=== PATIENT | female | born 1945 | race Caucasian/White ===

== ENCOUNTER 2017-05-11 19:02 | Emergency (ER) | payer MEDICARE ==
--- NOTE | 2017-05-11 20:18 | ED ---
Fall HPI - General Chief Complaint: Fall Stated Complaint: Fall Time Seen by Provider: 05/11/17 19:39 Source: patient, RN notes reviewed, old records reviewed Mode of arrival: wheelchair - History of Present Illness Initial Comments: 71-year-old female presents the ED chief complaint of right shoulder pain. Patient reports that she tripped and fell when she was going over her course in. She reports that her second foot fell or tripped over a board and she landed on her right shoulder. She denies any neck or head pain or any other injuries. She reports that she has no elbow pain or pain with the wrist or hand. He reports that when she fell she landed on her shoulder and felt a crunching denies any previous injuries. She is right-handed. Patient reports she's never seen an orthopedic that she is aware. Patient reports she noticed significant bruising or swelling. - Related Data Home Medications Medication Instructions Recorded Confirmed Calcium Carbonate/Vitamin D3 1 tab PO DAILY 05/11/17 05/11/17 [Calcium 600-Vit D3 200 Tablet] Fluticasone/Salmeterol [Advair 1 puff INHALATION RT-DAILY 05/11/17 05/11/17 500-50 Diskus] Glucosam/Sumeet-Msm1/C/Eitan/Bosw 1 tab PO DAILY 05/11/17 05/11/17 [Glucosamine-Chondroitin Tablet] Multivitamins, Thera [Multivitamin 1 tab PO DAILY 05/11/17 05/11/17 (formulary)] Previous Rx's Medication Instructions Recorded HYDROcodone/APAP 10-325MG [[place] 1 tab PO Q4HR PRN #15 tab 05/11/17 10-325] Allergies Allergy/AdvReac Type Severity Reaction Status Date / Time cefprozil [From Cefzil] Allergy Rash/Hives Verified 05/11/17 20:02 ciprofloxacin Allergy Rash/Hives Verified 05/11/17 20:02 Review of Systems ROS Statement: Those systems with pertinent positive or pertinent negative responses have been documented in the HPI. ROS Other: All systems not noted in ROS Statement are negative. Past Medical History Past Medical History: Asthma History of Any Multi-Drug Resistant Organisms: None Reported Past Surgical History: Tonsillectomy Past Psychological History: No Psychological Hx Reported Smoking Status: Never smoker Past Alcohol Use History: Occasional Past Drug Use History: None Reported General Exam - General Exam Comments Initial Comments: 71-year-old female. No acute distress. Limitations: no limitations General appearance: alert, in no apparent distress Head exam: Present: atraumatic, normocephalic, normal inspection Eye exam: Present: normal appearance, PERRL, EOMI. Absent: scleral icterus, conjunctival injection, periorbital swelling ENT exam: Present: normal exam, mucous membranes moist Neck exam: Present: normal inspection. Absent: tenderness, meningismus, lymphadenopathy Respiratory exam: Present: normal lung sounds bilaterally. Absent: respiratory distress, wheezes, rales, rhonchi, stridor Cardiovascular Exam: Present: regular rate, normal rhythm, normal heart sounds. Absent: systolic murmur, diastolic murmur, rubs, gallop, clicks GI/Abdominal exam: Present: soft, normal bowel sounds. Absent: distended, tenderness, guarding, rebound, rigid Extremities exam: Present: normal capillary refill, other (Right upper arm bruising and swelling. Patient has ecchymosis over the anterior part of the arm. Difficulty with any movement of the shoulder. She does have full range of motion of the elbow and wrist. Normal sensation distally. Less than 2 second capillary refill.). Absent: full ROM, tenderness, pedal edema, joint swelling, calf tenderness Back exam: Present: normal inspection Neurological exam: Present: alert, oriented X3, CN II-XII intact Psychiatric exam: Present: normal affect, normal mood Skin exam: Present: warm, dry, intact, normal color. Absent: rash Course Vital Signs 05/11/17 19:21 Temperature 98.7 F Pulse Rate 69 Respiratory 20 Rate Blood Pressure 139/65 O2 Sat by Pulse 97 Oximetry Medical Decision Making - Medical Decision Making 71-year-old female with chief complaint of right shoulder pain after falling after tripping over a fence. She heard a crunching noise over the right shoulder. She does have significant bruising and swelling noted over the anterior part of the upper arm. Patient reports that there is pain with moving. X-rays of the right shoulder obtained and have evidence of a intertrochanteric humerus fracture. She was placed in a sling. Patient will be discharged with orthopedic follow-up and pain medication. Patient advised to sleep with her head upright and propped on pillows. Patient agrees to treatment plan will comply. Return parameters were discussed. Disposition Clinical Impression: Comminuted right humeral fracture Disposition: HOME SELF-CARE Condition: Good Instructions: Arm Fracture in Adults (ED), Proximal Humerus Fracture (ED) Additional Instructions: Patient advised to sleep with pillows propping her arm up and sitting up. Patient to take pain medication as directed. Follow-up with orthopedic physician on Friday. Return to the emergency department if any alarming signs or symptoms occur. Patient needs to remain in sling at all times. Prescriptions: HYDROcodone/APAP 10-325MG [[place] 10-325] 1 tab PO Q4HR PRN #15 tab PRN Reason: Pain Referrals: Bianca Espinoza III, MD [Primary Care Provider] - 1-2 days Sylvain Waite MD [STAFF PHYSICIAN] - 1-2 days Time of Disposition: 20:29
--- NOTE | 2017-05-11 20:24 | XR ---
EXAMINATION TYPE: XR shoulder complete RT DATE OF EXAM: 05/11/2017 COMPARISON: NONE HISTORY: Shoulder pain TECHNIQUE: 3 views FINDINGS: There is nondisplaced comminuted fracture of the neck of the right humerus. There is no dis location. AC joint is intact. Scapula appears intact. IMPRESSION: Comminuted humeral neck fracture.
[2017-05-11] MEDS ORDERED: HYDROcodone/APAP 10-325MG 1 EACH TAB PO ONE (20:28)
[2017-05-11] MEDS ORDERED: ACET/COD 300 MG/30 MG STARTER PACK 6 TAB BTL PO STA (20:28)
[2017-05-11 20:45] VITALS: BP 104/63; PULSE 62; RESP 15; TEMP 97.9
== END 2017-05-11 20:41 | disposition home or self-care (01) ==
LOC: EC 19:02
DX: S42.294A Other nondisplaced fracture of upper end of right humerus, initial encounter for closed fracture (principal); J45.909 Unspecified asthma, uncomplicated; Z79.51 Long term (current) use of inhaled steroids; Z79.899 Other long term (current) drug therapy; Z88.1 Allergy status to other antibiotic agents; W01.0XXA Fall on same level from slipping, tripping and stumbling without subsequent striking against object, initial encounter
CPT/HCPCS: 99284

== ENCOUNTER → 2017-05-14 | Outpatient (CLI) | payer MEDICARE ==
[2017-05-14 14:22] LABS: EKG EKG PERFORMED
[2017-05-14 14:32] LABS: Basophils % (A) 0 %; CH 31.4; CHCM 32.5; Eosinophils # (A) 0.1 k/uL (0-0.7); Eosinophils % (A) 1 %; HCT 34.4 % (34.0-46.0); HDW 2.27; HGB 11.3 gm/dL (11.4-16.0); Luc # (Auto) 0.15; Luc % (Auto) 2; Lymphocytes # (A) 1.3 k/uL (1.0-4.8); Lymphocytes % (A) 14 %; MCH 31.9 pg (25.0-35.0); MCHC 32.8 g/dL (31.0-37.0); MCV 97.1 fL (80.0-100.0); Mean Platelet Volume 7.2; Monocytes # (A) 0.4 k/uL (0-1.0); Monocytes % (A) 4 %; Neutrophils # (A) 7.6 k/uL (1.3-7.7); Neutrophils % (A) 80 %; RBC 3.54 m/uL (3.80-5.40); RDW 14.1 % (11.5-15.5); WBC 9.4 k/uL (3.8-10.6); WBC (Perox) 10.26
[2017-05-14 14:49] LABS: Anion Gap 10 mmol/L; Carbon Dioxide 29 mmol/L (22-30); Chloride 101 mmol/L (98-107); Potassium 4.4 mmol/L (3.5-5.1); Sodium 140 mmol/L (137-145)
== END | disposition home or self-care (01) ==
LOC: LABPAT 13:49
PROVIDERS: ATTEND Orthopaedic Surgery
DX: Z01.810 Encounter for preprocedural cardiovascular examination (principal); Z01.818 Encounter for other preprocedural examination; S42.291D Other displaced fracture of upper end of right humerus, subsequent encounter for fracture with routine healing
CPT/HCPCS: 80051; 85025; 93005

== ENCOUNTER 2017-05-16 07:09 | Day surgery (SDC) | payer MEDICARE ==
[2017-05-13 14:13] VITALS: BMI 19.2
--- NOTE | 2017-05-15 12:01 | HP ---
CHIEF COMPLAINT: Right shoulder pain. HISTORY OF PRESENT ILLNESS: The patient is a 71-year-old right hand dominant female who is retired who presents after injuring her right shoulder on . She was stepping between the fence rail when she caught her foot, lost her balance and fell on her right upper extremity. She has been in a sling since. Upon evaluation, she was noted to have evidence of a displaced right proximal humerus fracture. PAST MEDICAL HISTORY: Significant for asthma. Past surgical history significant for tonsillectomy. Current medications: Advair. ALLERGIES: SHE NOTES ALLERGY TO CIPROFLOXACIN AND CEPHALOSPORINS. FAMILY HISTORY: Negative. SOCIAL HISTORY: Negative for current tobacco or alcohol use. 16 point review of systems reviewed and is noncontributory. On examination, the patient is approximately 5 feet 4 inches, 112 pounds of mesomorphic habitus. HEENT Exam is nonfocal. Neck is supple. On examination of the right shoulder, she has moderate anterior swelling. She is tender over the proximal humerus. She has limited motion because of pain. She is nontender about the acromioclavicular and sternoclavicular joints. She is nontender about the right elbow and wrist. Her distal neurovascular exam appears to be intact in the right upper extremity. Two views of the right shoulder that were reviewed in the office show a proximal humeral neck fracture with moderate displacement. IMPRESSION: Right displaced proximal humerus fracture. RECOMMENDATIONS: I talked to the patient at length regarding treatment options. With the degree of initial displacement and comminution of the fracture site, I recommended proceeding with surgery. We will plan to proceed with open reduction and internal fixation of her right proximal humerus fracture. We will likely keep the patient for 23 hour hold postoperatively. MITZY
[~2017-05-16 07:09] MED LIST: CLINDAMYCIN 600 MG in DEXTROSE 5% IN WATER 50 ML IVPB ONE; DEXAMETHASONE SOD PHOSPHATE 10 MG/ML 1 ML VIAL IV ONE; FAMOTIDINE 20 MG/2 ML VIAL IV PRN; LACTATED RINGERS 1,000 ML IV SCH; LIDOCAINE 1% 20 ML VIAL (10MG/ML) FOR IV START INTRADERMA PRN; MIDAZOLAM 2 MG/2 ML VIAL IV PRN
[2017-05-16] MEDS ORDERED: SUCCINYLCHOLINE CHLORIDE 100 MG/5 ML SYR IV ONE (09:19)
[2017-05-16] MEDS ORDERED: PROPOFOL 10 MG/ML 20 ML VIAL IV ONE (09:19)
[2017-05-16] MEDS ORDERED: LIDOCAINE 1% INJ 10MG/ML (20 ML MDV) ONE (09:19)
[2017-05-16] MEDS ORDERED: PHENYLEPHRINE-0.9% NACL SYG 1 MG/10 ML SYRINGE ONE (09:19)
[2017-05-16] MEDS ORDERED: fentaNYL (PF) 50 MCG/ML 2 ML AMP ONE (09:19)
[2017-05-16] MEDS ORDERED: MIDAZOLAM 2 MG/2 ML VIAL ONE (09:19)
[2017-05-16] MEDS ORDERED: HYDROmorphone (PF) 1 MG/ML ONE (09:19)
[2017-05-16] MEDS ORDERED: CLINDAMYCIN 600 MG in SODIUM CHLORIDE 0.9% 1,000 ML IRRIGATION ONE (09:57)
[2017-05-16] MEDS ORDERED: LACTATED RINGERS 1,000 ML IV ONE (10:15)
[2017-05-16] MEDS ORDERED: HYDROcodone/APAP 5-325MG 1 EACH TAB PO PRN ×2 (11:04)
[2017-05-16] MEDS ORDERED: HYDROmorphone 1 MG/ML 1 ML SYRINGE IVP PRN (11:04)
--- NOTE | 2017-05-16 11:23 | P.OP ---
Date of Procedure: 05/16/17 Preoperative Diagnosis: Displaced right proximal humerus fracture Postoperative Diagnosis: Same Procedure(s) Performed: Open reduction and internal fixation right proximal humerus fracture Implants: Jaimee S3 3-hole proximal humeral plate Anesthesia: JANICE Surgeon: Sylvain Waite Maori Liaison Adviser #1: Mark Carson Estimated Blood Loss (ml): 80 Pathology: none sent Condition: stable Disposition: PACU Indications for Procedure: The patient's a 71-year-old female presents after falling injuring her right shoulder recently. Upon evaluation, she was noted have a displaced right proximal humerus fracture involving the humeral neck. A discussion of the risks and benefits of operative intervention versus conservative measures was made with the patient. She opted to proceed with surgery. Operative risks to include infection, neurovascular injury, development of blood clots, possible development of nonunion, possible development of malunion and need for subsequent procedures was discussed. Informed consent was obtained. Operative Findings: As below Description of Procedure: The patient was brought to the operating room, and after induction of general anesthesia was placed into a beachchair position. The bony prominences were appropriately padded. The fracture was reduced provisionally with longitudinal traction and manipulation. This was verified with fluoroscopy. The right upper extremity was prepped and draped in normal fashion. A deltopectoral incision was made just lateral to the coracoid process. The skin was incised sharply. Subcu changed tissues were divided bluntly. The deltopectoral interval was identified and the cephalic vein gently retracted laterally with the deltoid. A portion of the upper pectoralis tendon was released to aid in exposure. The bicipital groove was identified as well as the biceps tendon. A self-retaining retractor was placed. I did open the clavipectoral fascia and retracted the conjoined tendon medially. I then placed a 3 hole plate 3 cm low the level of the greater tuberosity and provisionally fixed this with a K wire. This was done with the aid of fluoroscopy. The plate was then stabilized distally with 2.4 mm cortical screws of the appropriate length. The appropriate drill was utilized for placement of the smooth pegs proximally. These were done sequentially with the aid of fluoroscopy. Final fluoroscopic views showed adequate reduction of this fracture along with placement of the implant. The wound was irrigated normal saline. The deltopectoral interval was closed with interrupted 2-0 Vicryl sutures. The skin was reapproximated with 3-0 subcuticular Prolene suture. Steri-Strips were applied. A sterile dressing was applied as well as a sling. The patient was awoken from general anesthesia and transferred to the recovery room in good condition. Blood loss was estimated 80 mL. No complications were incurred. Sponge and needle counts were correct at the end the case.
--- NOTE | 2017-05-16 11:27 | XR ---
FLUOROSCOPY 36 seconds of fluoroscopy time were utilized during internal fixation of the right shoulder. 2 images document the procedure.
[2017-05-16] MEDS: HYDROmorphone 1 MG/ML 1 ML SYRINGE IVP PRN ×2 (12:05→12:12)
[2017-05-16] MEDS: ONDANSETRON 4 MG/2 ML VIAL IVP PRN ×2 (13:21→20:14)
--- NOTE | 2017-05-16 15:29 | P.DS ---
Providers Date of admission: 05/16/2017 Attending physician: Sylvain Waite Primary care physician: Bianca Espinoza Procedures: Open reduction internal fixation right proximal humerus fracture Patient Condition at Discharge: Good Plan - Discharge Summary New Discharge Prescriptions: New Aspirin 325 mg PO DAILY #30 tab Hydrocodone/Acetaminophen [[place] 5-325] 1 - 2 each PO Q6HR PRN #40 tab PRN Reason: Pain No Action Multivitamins, Thera [Multivitamin (formulary)] 1 tab PO DAILY Fluticasone/Salmeterol [Advair 500-50 Diskus] 1 puff INHALATION RT-DAILY Glucosam/Sumeet-Msm1/C/Eitan/Bosw [Glucosamine-Chondroitin Tablet] 1 tab PO DAILY Calcium Carbonate/Vitamin D3 [Calcium 600-Vit D3 200 Tablet] 1 tab PO DAILY Discharge Medication List Calcium Carbonate/Vitamin D3 [Calcium 600-Vit D3 200 Tablet] 1 tab PO DAILY [History] Fluticasone/Salmeterol [Advair 500-50 Diskus] 1 puff INHALATION RT-DAILY [History] Glucosam/Sumeet-Msm1/C/Eitan/Bosw [Glucosamine-Chondroitin Tablet] 1 tab PO DAILY 05/11/17 [History] Multivitamins, Thera [Multivitamin (formulary)] 1 tab PO DAILY 05/11/17 [History ] Aspirin 325 mg PO DAILY #30 tab 05/16/17 [Rx] Hydrocodone/Acetaminophen [[place] 5-325] 1 - 2 each PO Q6HR PRN #40 tab 05/16/17 [Rx] Follow up Appointment(s)/Referral(s): Mark Carson PAC [PHYSICIAN SATELLITE PROJECT SITE MONITOR] - 05/28/17 2:00 pm Patient Instructions/Handouts: *Surgery [facility] - (Anesthesia) Discharge Instructions Outpatient Surgery, *[facility] - ([facility]) Shoulder Discharge Instructions Activity/Diet/Wound Care/Special Instructions: Orthopedic Discharge Instructions: 1. Resume home medications after discharge 2. Pain medications as needed 3. Utilize arm sling, pendular exercises daily 4. No lifting with right upper extremity 5. Follow up at [facility] in 2 weeks Discharge Disposition: HOME SELF-CARE
[2017-05-16] MEDS: CLINDAMYCIN 600 MG in DEXTROSE 5% IN WATER 50 ML IVPB SCH ×2 (20:57)
[2017-05-16 21:04] VITALS: RESP 16
[2017-05-17] MEDS: CLINDAMYCIN 600 MG in DEXTROSE 5% IN WATER 50 ML IVPB SCH ×2 (03:18)
[2017-05-17 04:27] VITALS: TEMP 98.4
--- NOTE | 2017-05-17 08:11 | P.PN ---
Progress Note - Text S: The patient has no complaints. They deny shortness of breath or chest pain. O: Afebrile, vital signs stable Distal neurovascular status intact in the right upper extremity Incision clean, dry , and intact A/P: Postoperative day 1 status post ORIF right proximal humerus fracture Discharge home today. Pendular exercises twice daily, otherwise wear sling part time. Follow-up 10-14 days.
[2017-05-17 08:44] VITALS: BP 141/61; PULSE 76
--- NOTE | 2017-05-20 10:11 | P.DS ---
Providers Date of admission: 05/16/2017 Expected date of discharge: 05/17/17 Attending physician: Sylvain Waite Primary care physician: Bianca Espinoza [facility] Course: Date of admission: 05/16/2017 Date of discharge: 05/17/2017 Admission diagnosis: Status post ORIF right proximal humerus fracture Discharge diagnosis: Same Attending physician: Dr. Waite Surgical procedures: Open reduction internal fixation right proximal humerus fracture Brief history: Patient is a 71-year-old female who is seen and evaluated in the outpatient setting by Dr. Waite. She had fallen prior days before, and was diagnosed with a displaced right proximal humerus fracture. It was determined that surgical intervention would be the best option for her. She was scheduled for surgery on 05/16/2017.. Hospital course: Details of patient's surgery can be found in operative report. Patient tolerated the procedure well and was subsequently transported to orthopedic floor. Patient's orthopeidc and medical care was provided daily. Patient had daily laboratory tests performed for evaluation of overall blood counts. Patient had daily physical therapy to include strengthening range of motion as well as education with walker ambulation. Patient was treated with aspirin 325mg for their postoperative DVT prophylaxis during their inpatient stay. Patient was noted to have a relatively uneventful postoperative course. Patient reported satisfactory pain control with oral pain medications by postoperative day 0. Patient showed satisfactory progress with physical therapy. Patient moved steadily through the program and had no difficulty meeting the goals by postoperative day 1. Given patient's otherwise satisfactory course and having met physical therapy goals, plan is to discharge patient home on postoperative day 1. Discharge condition/disposition: Patient will be discharged home in stable condition. Discharge medications: Instructions are given on resumption of patient's normal daily medications per primary care recommendation, in addition patient will be prescribed aspirin 325 mg, [place]. Discharge instructions: 1. Wound care and infection precautions, keep incision dry and covered while showering, no lotions, creams, moisturizers. No soaking, tubs, pools, hottubs. Do not scrub over the incision. 2. Utilize arm sling, pendulum exercises as instructed 3. Ice and elevate when necessary. Do not exceed 20 minutes per hour with ice pack. 4. Utilize compression sleeve until seen at first follow up appointment. 5. Visiting nursing care. 6. Home physical therapy . 7. Pain meds and anticoagulants per prescription. 8. Pain medication has potential to cause constipation. Increase oral fluid and fiber intake. Contact primary care provider if you have not had a bowel movement within 48 hours after discharge 9. No anti-inflammatory medication until discussed at first post operative visit, this including Motrin, Aleve, Mobic, Diclofenac. 10. Follow up in office at 2 weeks postop with Josef Carson PA-C 11. Follow up with your primary care doctor 7-10 days after discharge. 12. Contact [facility] with any questions, . Procedures: Open reduction internal fixation right proximal humerus fracture Patient Condition at Discharge: Good Plan - Discharge Summary New Discharge Prescriptions: New Aspirin 325 mg PO DAILY #30 tab Hydrocodone/Acetaminophen [[place] 5-325] 1 - 2 each PO Q6HR PRN #40 tab PRN Reason: Pain No Action Multivitamins, Thera [Multivitamin (formulary)] 1 tab PO DAILY Fluticasone/Salmeterol [Advair 500-50 Diskus] 1 puff INHALATION RT-DAILY Glucosam/Sumeet-Msm1/C/Eitan/Bosw [Glucosamine-Chondroitin Tablet] 1 tab PO DAILY Calcium Carbonate/Vitamin D3 [Calcium 600-Vit D3 200 Tablet] 1 tab PO DAILY Discharge Medication List Calcium Carbonate/Vitamin D3 [Calcium 600-Vit D3 200 Tablet] 1 tab PO DAILY [History] Fluticasone/Salmeterol [Advair 500-50 Diskus] 1 puff INHALATION RT-DAILY [History] Glucosam/Sumeet-Msm1/C/Eitan/Bosw [Glucosamine-Chondroitin Tablet] 1 tab PO DAILY 05/11/17 [History] Multivitamins, Thera [Multivitamin (formulary)] 1 tab PO DAILY 05/11/17 [History ] Aspirin 325 mg PO DAILY #30 tab 05/16/17 [Rx] Hydrocodone/Acetaminophen [[place] 5-325] 1 - 2 each PO Q6HR PRN #40 tab 05/16/17 [Rx] Follow up Appointment(s)/Referral(s): Mark Carson PAC [PHYSICIAN SERVICE COUNTER CASHIER] - 05/28/17 2:00 pm Patient Instructions/Handouts: *Surgery [facility] - (Anesthesia) Discharge Instructions Outpatient Surgery, *[facility] - ([facility]) Shoulder Discharge Instructions Activity/Diet/Wound Care/Special Instructions: Orthopedic Discharge Instructions: 1. Resume home medications after discharge 2. Pain medications as needed 3. Utilize arm sling, pendular exercises daily 4. No lifting with right upper extremity 5. Follow up at [facility] in 2 weeks Discharge Disposition: HOME SELF-CARE
== END 2017-05-17 12:00 | disposition home or self-care (01) ==
LOC: OR 07:09 → 3OBS 11:00 → OR 05-17 12:00
PROVIDERS: ATTEND Orthopaedic Surgery
DX: S42.291A Other displaced fracture of upper end of right humerus, initial encounter for closed fracture (principal); W18.39XA Other fall on same level, initial encounter; J45.909 Unspecified asthma, uncomplicated; Z79.82 Long term (current) use of aspirin; Z79.51 Long term (current) use of inhaled steroids; Z88.1 Allergy status to other antibiotic agents
CPT/HCPCS: 73020; 23615; C1713; J2250; J1100; J2405; J2001; J3010; J1170; J2370; J0330; J2704

== ENCOUNTER → 2017-10-03 | Outpatient (CLI) | payer MEDICARE ==
--- NOTE | 2017-10-07 14:26 | ECHOF ---
Referral Reason:R01.1 Cardiac murmur MEASUREMENTS -------- HEIGHT: 162.6 cm WEIGHT: 52.2 kg BP: RVIDd: 1.8 cm (< 3.3) IVSd: 0.6 cm (0.6 - 1.1) LVIDd: 4.1 cm (3.9 - 5.3) LVPWd: 0.7 cm (0.6 - 1.1) IVSs: 0.8 cm LVIDs: 2.5 cm LVPWs: 1.1 cm LAESV Index (A-L): 14.67 ml/m Ao Diam: 2.7 cm (2.0 - 3.7) AV Cusp: 1.7 cm (1.5 - 2.6) LA Diam: 1.5 cm (2.7 - 3.8) EPSS: 0.5 cm MV E Marcello: 1.14 m/s MV DecT: 232 ms MV A Marcello: 1.04 m/s MV E/A Ratio: 1.10 RAP: 5.00 mmHg RVSP: 22.93 mmHg MV EF SLOPE: 134.79 mm/s (70 - 150) MV EXCURSION: 1.80 cm (> 18.000) FINDINGS -------- Sinus rhythm. This was a technically good study. The left ventricular size is normal. Left ventricular wall thickness is normal. Overall left vent ricular systolic function is normal with, an EF between 60 - 65 %. The right ventricle is normal in size and function. Normal LA size by volume 22+/-6 ml/m2. The right atrium is normal in size. Aortic valve is trileaflet and is mildly thickened. There is no evidence of aortic regurgitation. There is no evidence of aortic stenosis. The mitral valve leaflets are mildly thickened. There is trace mitral regurgitation. Trace tricuspid regurgitation present. Right ventricular systolic pressure is normal at < 35 mmHg. There is no evidence of pulmonary hypertension. The pulmonic valve was not well visualized. The aortic root size is normal. Normal inferior vena cava with normal inspiratory collapse consistent with estimated right atrial pre ssure of 5 mmHg. The pericardium is normal. There is no pericardial effusion. CONCLUSIONS -------- 1. Sinus rhythm. 2. This was a technically good study. 3. The left ventricular size is normal. 4. Left ventricular wall thickness is normal. 5. Overall left ventricular systolic function is normal with, an EF between 60 - 65 %. 6. Normal LA size by volume 22+/-6 ml/m2. 7. Aortic valve is trileaflet and is mildly thickened. 8. The mitral valve leaflets are mildly thickened. 9. There is trace mitral regurgitation. 10. Trace tricuspid regurgitation present. 11. Right ventricular systolic pressure is normal at < 35 mmHg. 12. There is no evidence of pulmonary hypertension. 13. The pulmonic valve was not well visualized. 14. The aortic root size is normal. 15. There is no pericardial effusion. MANAGER REPORTING: Elder Escalera RDCS
== END ==
LOC: RADECHMAIN 13:12
PROVIDERS: ATTEND Family Medicine
DX: R01.1 Cardiac murmur, unspecified (principal)
CPT/HCPCS: 93306

== ENCOUNTER 2021-05-07 13:05 | Emergency (ER) | payer MEDICARE ==
[2021-05-07 13:10] VITALS: RESP 18
[2021-05-07] MEDS ORDERED: LIDOCAINE 1% INJ 10MG/ML (20 ML MDV) SQ ONE (13:35)
[2021-05-07] MEDS ORDERED: ACETAMINOPHEN TAB 325 MG TAB PO STA (13:46)
[2021-05-07] MEDS ORDERED: ACETAMINOPHEN TAB 500 MG TAB PO STA (14:06)
--- NOTE | 2021-05-07 14:25 | CT ---
EXAMINATION TYPE: CT brain josetteine wo con DATE OF EXAM: 05/07/2021 COMPARISON: None HISTORY: Hit in face by horse. Right sided injury. CT DLP: 930.3 mGycm, Automated exposure control for dose reduction was used. CONTRAST: Patient injected with 0 mL of Isovue 300. CT of the brain is performed utilizing 3 mm thick sections through the posterior fossa and 3 mm thick sections through the remaining calvarium. Study is performed within 24 hours of arrival to the hospital. No abnormal hyperdensity is present to suggest an acute intracranial hemorrhage. No mass lesion is evident. No acute infarcts are evident. Ventricles and sulci are prominent for the patient age. Soft tissue injuries along the right frontal region. No underlying osseous fracture is evident Paranasal sinuses and mastoid air cells within the solje-iw-mtiw are clear. IMPRESSIONS: 1. Age-related atrophy. 2. Soft tissue injury frontal region CT cervical spine. COMPARISON: None CT of the cervical spine is performed in the axial plane at 2 mm thick sections. Reconstructed image s in the coronal, and sagittal plane are reviewed on the computer. No acute fractures are evident. Vertebral body alignment is normal. Disc heights are preserved. Vertebral body heights are preserved. No spinal canal stenosis is evident. Uncovertebral joint hypertrophy contributing to foraminal narrowing. Lung apices are partially opacif ied with air bronchograms. Some bronchiectasis may be present. Correlate for pulmonary fibrosis IMPRESSIONS: 1. No acute osseous abnormality. 2. Diffuse bilateral increase lung markings. Correlate for pulmonary fibrosis.
--- NOTE | 2021-05-07 14:28 | CT ---
EXAMINATION TYPE: CT facial bones wo con DATE OF EXAM: 05/07/2021 COMPARISON: None HISTORY: Hit in face by horse. Right sided injury. CT DLP: 191.5 mGycm CONTRAST: 0 mL of Isovue 300 The paranasal sinuses are examined in the axial plane at 2 mm thick sections. Reconstructed images i n the coronal plane were obtained. There is dental amalgam scatter artifact. Maxillary spine is intact The maxillary sinuses are clear. The ethmoid air cells are clear. The sphenoid sinuses are clear. The frontal sinuses are clear. The septum is evaluated. There is septal deviation to the right. There is a right septal spur. The ostiomeatal units are patent. Zygomatic arches are intact. Nasal bones are intact. Soft tissue in juries over the right frontal region. No underlying fracture is evident IMPRESSIONS: 1. Right frontal soft tissue injury. 2. No acute osseous abnormality facial bones
[2021-05-07 14:36] VITALS: BP 155/74; PULSE 86; TEMP 97.5
--- NOTE | 2021-05-07 15:32 | ED ---
Head Injury HPI - General Chief complaint: Head Injury Stated complaint: kicked in head by horse Time Seen by Provider: 05/07/21 13:26 Source: patient Mode of arrival: ambulatory Limitations: no limitations - History of Present Illness Initial comments: 75-year-old male presents to emergency Department with a chief complaint of a headache injury. Patient reports she was working with a horse when it grows up and she was hit by the side of the horse. She was not kicked directly into the face. She denies any blood thinners. There was no loss of consciousness but there is a laceration to the forehead. Patient reports the bleeding has mostly resolved. She also reports an injury inside her mouth. She does report spitting up some blood from her lower lip. She believes her tetanus is up-to-date. She denies any other injuries. - Related Data Home Medications Medication Instructions Recorded Confirmed Calcium Carbonate/Vitamin D3 1 tab PO DAILY 05/11/17 05/13/17 [Calcium 600-Vit D3 200 Tablet] Fluticasone/Salmeterol [Advair 1 puff INHALATION RT-DAILY 05/11/17 05/16/17 500-50 Diskus] Glucosam/Sumeet-Msm1/C/Eitan/Bosw 1 tab PO DAILY 05/11/17 05/13/17 [Glucosamine-Chondroitin Tablet] Multivitamins, Thera [Multivitamin 1 tab PO DAILY 05/11/17 05/13/17 (formulary)] Previous Rx's Medication Instructions Recorded Aspirin 325 mg PO DAILY #30 tab 05/16/17 Hydrocodone/Acetaminophen [Sherwood 1 - 2 each PO Q6HR PRN #40 tab 05/16/17 5-325] Allergies/Adverse reactions: Allergies Allergy/AdvReac Type Severity Reaction Status Date / Time cefprozil [From Cefzil] Allergy Rash/Hives Verified 05/07/21 13:10 ciprofloxacin Allergy Rash/Hives Verified 05/07/21 13:10 Review of Systems ROS Statement: Those systems with pertinent positive or pertinent negative responses have been documented in the HPI. ROS Other: All systems not noted in ROS Statement are negative. Past Medical History Past Medical History: Asthma Additional Past Medical History / Comment(s): fx rt shoulder History of Any Multi-Drug Resistant Organisms: None Reported Past Surgical History: Tonsillectomy Additional Past Surgical History / Comment(s): ORIF RIGHT SHOULDER Past Anesthesia/Blood Transfusion Reactions: Motion Sickness Additional Past Anesthesia/Blood Transfusion Reaction / Comment(s): no hx blood transfusion Past Psychological History: No Psychological Hx Reported Smoking Status: Never smoker Past Alcohol Use History: Occasional Past Drug Use History: None Reported - Past Family History Mother Family Medical History: No Reported History Father Family Medical History: Cancer Additional Family Medical History / Comment(s): skin General Exam Limitations: no limitations General appearance: alert, in no apparent distress Head exam: Present: atraumatic, normocephalic. Absent: normal inspection (4 cm laceration to the right side of the forehead), other (Negative Lai sign, raccoon eyes, hemotympanum.) Eye exam: Present: normal appearance, PERRL, EOMI Pupils: Present: normal accommodation ENT exam: Present: normal exam, mucous membranes moist, TM's normal bilaterally, normal external ear exam. Absent: normal oropharynx (2 small lacerations on the mucosal aspect of the lower lip. Does not cross the vermilion border) Neck exam: Present: normal inspection, full ROM. Absent: tenderness, lymphadenopathy Respiratory exam: Present: normal lung sounds bilaterally. Absent: respiratory distress Cardiovascular Exam: Present: regular rate, normal rhythm, normal heart sounds. Absent: systolic murmur Extremities exam: Present: normal inspection, full ROM, normal capillary refill. Absent: tenderness, pedal edema, joint swelling Back exam: Present: normal inspection, full ROM. Absent: tenderness, CVA tenderness (R), CVA tenderness (L) Neurological exam: Present: alert, oriented X3 Psychiatric exam: Present: normal affect, normal mood Skin exam: Present: warm, dry, intact, normal color Course Vital Signs 05/07/21 05/07/21 13:07 14:36 Temperature 98.1 F 97.5 F L Pulse Rate 94 86 Respiratory 18 18 Rate Blood Pressure 154/70 155/74 O2 Sat by Pulse 97 98 Oximetry Procedures - Laceration Laceration #1 Consent Obtained: verbal consent Indication: laceration Site: face Size (cm): 4 Description: linear, clean Depth: simple, single layer Sedation/Analgesia: none Anesthetic Used: lidocaine 1% Anesthesia Technique: local infiltration Amount (mls): 4 Pre-repair: irrigated extensively, deep structures intact Type of Sutures: nylon Size of Sutures: 4-0 Number of Sutures: 5 Technique: simple, interrupted Patient Tolerated Procedure: well, no complications Laceration #2 Consent Obtained: verbal consent Indication: laceration Site: oral Size (cm): 1 Description: linear, clean Depth: simple, single layer Sedation/Analgesia: none Anesthetic Used: lidocaine 1% Anesthesia Technique: local infiltration Amount (mls): 1 Pre-repair: irrigated extensively, deep structures intact Type of Sutures: nylon, vicryl Size of Sutures: 4-0 Number of Sutures: 2 Technique: simple, interrupted Patient Tolerated Procedure: well, no complications Laceration #3 Consent Obtained: verbal consent Indication: laceration Site: oral Size (cm): 1 Description: linear, clean Depth: simple, single layer Sedation/Analgesia: none Anesthetic Used: lidocaine 1% Anesthesia Technique: local infiltration Amount (mls): 1 Pre-repair: irrigated extensively, deep structures intact Type of Sutures: vicryl Size of Sutures: 4-0 Number of Sutures: 1 Technique: simple, interrupted Patient Tolerated Procedure: well, no complications Medical Decision Making - Medical Decision Making 75-year-old female presents to the emergency department with a chief complaint of a head injury by a horse. Physical examination, she has a for similar laceration to the right central forehead that was thoroughly irrigated and repaired with 5 sutures. Patient told the procedure well. Also 2 additional lacerations were repaired in the intraoral cavity, mucosal aspect of her lower lip. Does not cross the vermilion border. These were Vicryl sutures. CT of the brain and C-spine is unremarkable. CT of the facial bones shows no acute findings aside from soft tissue swelling. She believes her tetanus is up-to-date. She will follow with her PCP. Advised to return for suture removal. She was given pain for symptom control. Return parameters were thoroughly discussed the patient is an ascending agreeable. Case discussed with physician. Disposition Clinical Impression: Scalp laceration, Head injury, Laceration of oral cavity Disposition: HOME SELF-CARE Condition: Stable Instructions (If sedation given, give patient instructions): Care For Your Stitches (DC), Laceration (DC), Care For Your Absorbable Stitches (ED) Additional Instructions: Please return to the emergency room in 12 days to have sutures removed. Please watch for any signs of infection which may include increased pain, swelling, redness, fever or chills. Please return to emergency room for any signs of infection do occur. Please use clean soap and water over the area to prevent scabbing over your stitches. Please leave wound covered for the first 24-48 hours and then leave wound open to air. Please return to the emergency room for any other concerns. Is patient prescribed a controlled substance at d/c from ED?: No Referrals: Bianca Espinoza III, MD [Primary Care Provider] - 1-2 days Time of Disposition: 15:32
== END 2021-05-07 15:48 | disposition home or self-care (01) ==
LOC: EC 13:05
DX: S01.01XA Laceration without foreign body of scalp, initial encounter (principal); S01.512A Laceration without foreign body of oral cavity, initial encounter; J45.909 Unspecified asthma, uncomplicated; Z79.51 Long term (current) use of inhaled steroids; W55.12XA Struck by horse, initial encounter
CPT/HCPCS: 12011 ×2; 12002 ×2; 99283 ×2; 72125; 70486; 70450; J2001; 12001

== ENCOUNTER → 2023-03-28 | Outpatient (CLI) | payer MEDICARE ==
[2023-03-28 14:02] LABS: Total Eosinophil Count 80 #EOS/uL (150-300)
[2023-03-28 15:42] LABS: Erythrocyte Sedimentation Rate 106 mm/hr (0-20)
[2023-03-29 03:13] LABS: Rheumatoid Factor, Qnt <15 IU/mL (0-15)
== END | disposition home or self-care (01) ==
LOC: LABWHC1 12:16
PROVIDERS: ATTEND Internal Medicine Critical Care Medicine
DX: J47.9 Bronchiectasis, uncomplicated (principal)
CPT/HCPCS: 36415; 82785; 82787; 85008; 85652; 86038; 86140; 86431; 87070; 87116; 87205; 87206

== ENCOUNTER → 2023-04-04 | Outpatient (CLI) | payer MEDICARE ==
[2023-04-04 12:31] LABS: African American GFR (CKD) 79 (>60 ml/min/1.73 sqM); Blood Urea Nitrogen 18 mg/dL (7-17); Non-African American GFR(CKD) 68 (>60 ml/min/1.73 sqM)
--- NOTE | 2023-04-04 13:23 | CT ---
EXAMINATION TYPE: CT chest w con DATE OF EXAM: 04/04/2023 COMPARISON: 10/01/2012 HISTORY: Bronchiectasis. CT DLP: 95.1 mGycm Automated exposure control for dose reduction was used. TECHNIQUE: CT scan of the chest is performed with IV Contrast, patient injected with 100ml mL of Isovue 300. UT P Images are created on CT scanner and reviewed. 3D reconstructed images are created on an [facility] workstation and reviewed. FINDINGS: LUNGS: There is marked cystic bronchiectasis involving the left lower. There is areas of subsegmental consolidation scattered bilaterally throughout the suspect is most likely in the basis of atelectasi s. Correlate clinically. No sizable thorax underlying changes of COPD pulmonary fibrosis UIP. MEDIASTINUM: There is soft tissue fullness in the right measured in short axis 8mm compatible with vashti rderline adenopathy. Within the mediastinum there appears to be subcarinal pathologic lymphadenopathy measuring 1.4 cm short axis. There is moderate of mild coronary artery calcification. The aorta is o f normal caliber with mild atherosclerotic changes OTHER: Diffuse osteopenia with hypertrophic degenerative changes spine. Hypodensity within the left kidney is too small to characterize but statistically most likely related to a simple cyst. There is a small hiatal hernia. IMPRESSION: 1. Advanced cystic bronchiectasis involving the left lower lobe with bilateral areas of subsegmental dilatation scarring or atelectasis are favored over. There are scattered tree-in-bud patterns is asso ciated chronic inflammatory or infectious etiology including atypical or mycobacterium flexion. Corre late clinically. Bronchiectasis is significantly progressed relative to prior exam. 2. There is pathologic subcarinal lymphadenopathy. Consider PET CT scan.
== END | disposition home or self-care (01) ==
LOC: RADCTMAIN 11:56
PROVIDERS: ATTEND Internal Medicine Critical Care Medicine
DX: J47.9 Bronchiectasis, uncomplicated (principal); R59.0 Localized enlarged lymph nodes
CPT/HCPCS: 82565; 84520; 71260; 36415; Q9967

== ENCOUNTER → 2023-04-09 | Outpatient (CLI) | payer MEDICARE ==
[2023-04-10 19:51] LABS: Immunoglobulin E <5.00 IU/mL (0.00-114.00)
== END | disposition home or self-care (01) ==
LOC: LABWHC1 14:29
PROVIDERS: ATTEND Internal Medicine Critical Care Medicine
DX: J47.9 Bronchiectasis, uncomplicated (principal)
CPT/HCPCS: 36415; 82784; 82785; 82787; 86038; 86039

== ENCOUNTER → 2023-06-06 | Outpatient (CLI) | payer MEDICARE ==
[2023-06-06 21:11] LABS: Anti-Smith Ab Interp Negative (Negative)
[2023-06-09 15:16] LABS: C-ANCA <1:20 Titer (<1:20)
== END | disposition home or self-care (01) ==
LOC: LABWHC1 13:05
PROVIDERS: ATTEND Internal Medicine Critical Care Medicine
DX: J47.9 Bronchiectasis, uncomplicated (principal)
CPT/HCPCS: 36415; 85652; 86235; 86255

== ENCOUNTER 2023-06-12 10:33 | Day surgery (SDC) | payer MEDICARE ==
[~2023-06-12 10:33] MED LIST changes: -CLINDAMYCIN 600 MG in DEXTROSE 5% IN WATER 50 ML IVPB ONE; -DEXAMETHASONE SOD PHOSPHATE 10 MG/ML 1 ML VIAL IV ONE; -FAMOTIDINE 20 MG/2 ML VIAL IV PRN; +LIDOCAINE 1% (10MG/ML) FOR IV START INTRADERMA PRN; -LIDOCAINE 1% 20 ML VIAL (10MG/ML) FOR IV START INTRADERMA PRN; -MIDAZOLAM 2 MG/2 ML VIAL IV PRN
[2023-06-12 11:05] VITALS: TEMP 97.3
[2023-06-12 11:23] LABS: Glucose,Whole Blood 72 mg/dL (70-110)
[2023-06-12] MEDS ORDERED: GLYCOPYRROLATE 0.2 MG/ML 2 ML VIAL ONE (11:39)
[2023-06-12] MEDS ORDERED: PROPOFOL 10 MG/ML 20 ML VIAL IV ONE (11:39)
[2023-06-12] MEDS ORDERED: LIDOCAINE 2% INJ 20 MG/ML (2 ML VIAL) ONE (11:39)
[2023-06-12] MEDS ORDERED: MIDAZOLAM 2 MG/2 ML VIAL ONE (11:39)
[2023-06-12] MEDS ORDERED: LIDOCAINE 2% (PF) 20 MG/ML 2 ML AMP INHALATION ONE (11:45)
--- NOTE | 2023-06-12 12:19 | P.PCN ---
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 The patient had the procedure done in the endoscopy suite. This was done under conscious sedation. Anesthetic ages was given by INFORMATION LEAD. The patient was placed on a simple face mask with 10 L of oxygen After achieving adequate sedation, the flexible bronchoscope was introduced through the left nostril. The bronchoscope was advanced into the posterior oropharynx and later on to the larynx. Upper airway structures were all inspected. Pharynx and larynx were within normal limits. Epiglottis was within normal. Arytenoids, vallecula, the true and the false vocal cords were inspected and there was no significant abnormalities and the vocal cord function was within normal limits. There was normal abduction and adduction. A total of 2 mL of 1% lidocaine was applied to the vocal cords and following that they bronchoscope was advanced to the upper trachea. An airway inspection was done. There was copious amount of thick purulent blister secretions that were creamy and tenacious. Therapeutic airway suctioning was done. A total of 40 mL of fluid was aspirated without any major complications. Underlying bronchial mucosa was inflamed and erythematous. Airway inspection was completed and the visualized airways included the trachea, bilateral mainstem bronchi, right upper lobe bronchus, right middle lobe bronchus, right lower lobe bronchus and the various 10 segments on the right and examination of the left side included a left upper lobe bronchus and the left lower lobe bronchus and the various 8 segments of the left. There was no endobronchial tumors. The bronchial mucosa was inflamed and erythematous. There was obvious component of tracheobronchomalacia throughout the airways with dynamic collapsibility of the airway with exhalation and coughing. No endobronchial tumors or lesions identified. The bronchial lavage of the right lower lobe was done at the completion of the procedure were a total of 30 mL of fluid was aspirated from the right lung. A total of 60 mL was infused. Therapeutic airway suctioning was done. Respiratory secretions were all cleaned. The flexible bronchoscope was removed and the patient was transferred to recovery in stable condition. The bronchial alveolar lavage will be sent for microbial cultures and analysis.
[2023-06-12 13:11] VITALS: BP 159/80; PULSE 75
== END 2023-06-12 12:55 | disposition home or self-care (01) ==
LOC: ORWHC2ENDO 10:33
PROVIDERS: ATTEND Internal Medicine Critical Care Medicine
DX: J47.9 Bronchiectasis, uncomplicated (principal); J39.8 Other specified diseases of upper respiratory tract; J45.909 Unspecified asthma, uncomplicated; M85.80 Other specified disorders of bone density and structure, unspecified site; Z98.890 Other specified postprocedural states; Z79.51 Long term (current) use of inhaled steroids; Z79.2 Long term (current) use of antibiotics; Z79.899 Other long term (current) drug therapy
CPT/HCPCS: 87070; 87205; 87116; 87102; 87206; 31624; J2250; J2704; J2001 ×2; 87496; 87498; 87502; 87529; 87634; 87798

== ENCOUNTER → 2023-09-08 | Outpatient (CLI) | payer MEDICARE ==
[2023-09-08 12:58] LABS: African American GFR (CKD) 77 (>60 ml/min/1.73 sqM); Blood Urea Nitrogen 14 mg/dL (7-17); Non-African American GFR(CKD) 66 (>60 ml/min/1.73 sqM)
--- NOTE | 2023-09-08 13:43 | CT ---
EXAMINATION TYPE: CT chest w con CT DLP: 98.9 mGycm, Automated exposure control for dose reduction was used. DATE OF EXAM: 09/08/2023 1:21 PM COMPARISON: CT chest 04/04/2023. 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 Sagittal and coronal reformats were created for review. Contrast used:100 mL of Isovue 300 with IV Contrast Oral contrast used: (None if empty) FINDINGS: LUNGS/ PLEURA: The overall the lung parenchyma is similar with scattered peripheral airspace opacitie s and atelectasis. There are 2 larger cystic areas which may mildly increased in size compared to eder or with layering debris. Scattered reticular and tree-in-bud opacities probably peripherally througho ut the lungs. AIRWAY: Scattered bronchiectasis with opacified airways suggesting mucous secretions predominantly in the left lower lung. There is cavitary lesions again demonstrated. HEART: Size within normal limits. MEDIASTINUM: No enlarged lymph nodes by CT criteria. VASCULATURE: No aortic aneurysm. MUSCULOSKELETAL: No acute osseous abnormalities SOFT TISSUES/LYMPH NODES: Unremarkable. LOWER NECK: No significant findings. UPPER ABDOMEN: The right kidney is not visualized and may be on the [id number] are surgically abse nt. IMPRESSION: Similar to mildly progressed advanced cystic bronchiectasis predominantly involving left lower lobe, 2 areas of larger cystic disease with layering debris could represent pulmonary aspergillosis. There is areas of atelectasis with superimposed airspace infection not entirely excluded. Scattered periphe ral opacities throughout the remainder of the lung or not significantly unchanged from prior. These f indings with a tree-in-bud pattern are likely associated with chronic inflammatory or infectious etio logy including atypical or mycobacterium infection. Consider bronchoscopy with bronchial alveolar lav age for microbial analysis.
== END | disposition home or self-care (01) ==
LOC: RADCTMAIN 12:08
PROVIDERS: ATTEND Internal Medicine Critical Care Medicine
DX: B44.1 Other pulmonary aspergillosis (principal); J98.11 Atelectasis; R91.8 Other nonspecific abnormal finding of lung field
CPT/HCPCS: 82565; 84520; 71260; 36415; Q9967

== ENCOUNTER → 2023-12-01 | Outpatient (CLI) | payer MEDICARE ==
[2023-12-02 02:34] LABS: Basophils % (A) 0.8 %; Eosinophils % (A) 1.7 %; HCT 31.4 % (37.2-46.3); HGB 9.8 g/dL (12.0-15.0); Lymphocytes % (A) 13.5 %; MCHC 31.2 g/dL (32.0-37.0); Mean Platelet Volume 9.8 FL (9.5-12.2); Monocytes # (A) 0.78 X 10*3/uL (0.20-1.00); Monocytes % (A) 6.6 %; NRBC Per 100 WBC 0 X 10*3/uL (0.00-0.01); Neutrophils # (A) 9.15 X 10*3/uL (1.80-7.70); Neutrophils % (A) 77.1 %; Platelet Count 416 X 10*3/uL (140-440); RBC 3.27 X 10*6/uL (4.10-5.20); RDW 14.9 % (11.5-14.5); WBC 11.87 X 10*3/uL (4.50-10.00)
[2023-12-02 02:47] LABS: ALT 12 U/L (8-44); AST 23 U/L (13-35); Albumin/Globulin Ratio 0.95 Ratio (1.60-3.17); Alkaline Phosphatase 81 U/L (41-126); Blood Urea Nitrogen 19.8 mg/dL (9.0-27.0); Calcium 9.6 mg/dL (8.7-10.3); Carbon Dioxide 27.9 mmol/L (21.6-31.8); Chloride 97 mmol/L (96-109); Globulin 4.2 g/dL (1.6-3.3); Glucose 94 mg/dL (70-110); Potassium 4.4 mmol/L (3.5-5.5); Sodium 135 mmol/L (135-145); Total Bilirubin 0.3 mg/dL (0.3-1.2); Total Protein 8.2 g/dL (6.2-8.2)
[2023-12-02 03:39] LABS: Erythrocyte Sedimentation Rate 57 mm/Hr (0-30)
== END | disposition home or self-care (01) ==
LOC: LABWHC1 15:30
PROVIDERS: ATTEND Internal Medicine Infectious Disease
DX: B44.1 Other pulmonary aspergillosis (principal)
CPT/HCPCS: 36415; 80053; 85025; 85652; 86003; 86140

== ENCOUNTER → 2023-12-10 | Outpatient (CLI) | payer MEDICARE | END | disposition home or self-care (01) | LOC: LABWHC1 13:58 | PROVIDERS: ATTEND Internal Medicine Infectious Disease | DX: B44.9 Aspergillosis, unspecified (principal) | CPT/HCPCS: 36415; 87070; 87205 ==

== ENCOUNTER → 2024-04-27 | Outpatient (CLI) | payer MEDICARE ==
--- NOTE | 2024-04-27 16:06 | US ---
EXAMINATION TYPE: US kidneys/renal and bladder DATE OF EXAM: 04/27/2024 COMPARISON: NONE CLINICAL INDICATION: Female, 78 years old with history of R31.9 HEMATURIA R35.0 URINE FREQ; hematuria EXAM MEASUREMENTS: Right Kidney: 8.6 x 5.5 x 6.8 cm Left Kidney: 11.2 x 4.4 x 4.9 cm Right Kidney: No hydronephrosis or masses seen Left Kidney: Cystic area seen at lat border measuring 1.0 x 0.8 x 0.8cm. Isoechoic area seen at mid p ole measuring 1.9 x 2.6 x 1.8cm, possible column of Booker vs other etiology. Bladder: wnl Bilateral Jets seen: No due to bowel gas There is no evidence for hydronephrosis at this point in time. No nephrolithiasis is seen. The urin wesley bladder is anechoic. IMPRESSION: 1. No evidence for obstructive uropathy. 2. Left renal masslike area should be further evaluated with renal mass protocol MRI. Findings could represent column of Booker versus mass. 3. Simple appearing left renal cyst.
== END | disposition home or self-care (01) ==
LOC: RADUSWWP 13:43
PROVIDERS: ATTEND Internal Medicine
DX: N28.1 Cyst of kidney, acquired (principal); R31.9 Hematuria, unspecified; R35.0 Frequency of micturition
CPT/HCPCS: 76770

== ENCOUNTER 2024-06-28 13:49 | Emergency (ER) | payer MEDICARE ==
[2024-06-28 15:12] LABS: Basophils # (A) 0.1 k/uL (0-0.2); Basophils % (A) 1 %; Eosinophils # (A) 0.2 k/uL (0-0.7); Eosinophils % (A) 2 %; HCT 30.8 % (34.0-46.0); HGB 10.1 gm/dL (11.4-16.0); Lymphocytes # (A) 1.1 k/uL (1.0-4.8); Lymphocytes % (A) 9 %; MCH 31.5 pg (25.0-35.0); MCHC 32.9 g/dL (31.0-37.0); MCV 95.7 fL (80.0-100.0); Monocytes # (A) 0.5 k/uL (0-1.0); Monocytes % (A) 4 %; Neutrophils # (A) 10.1 k/uL (1.3-7.7); Neutrophils % (A) 83 %; Platelet Count 551 k/uL (150-450); RBC 3.21 m/uL (3.80-5.40); RDW 13.9 % (11.5-15.5); WBC 12.1 k/uL (3.8-10.6)
[2024-06-28 15:16] LABS: Appearance,Urine Clear (Clear); Bilirubin,Urine Negative (Negative); Blood,Urine Negative (Negative); Color,Urine Colorless; Glucose,Urine (UA) Negative (Negative); Ketones,Urine Negative (Negative); Leukocyte Esterase,Urine Negative (Negative); Nitrite,Urine Negative (Negative); PH, Urine 6.5 (5.0-8.0); Protein,Urine Negative (Negative); Urobilinogen,Urine <2.0 mg/dL (<2.0)
[2024-06-28 15:24] LABS: ALT 47 U/L (4-34); AST 63 U/L (14-36); Acetaminophen <10.0 ug/mL; African American GFR (CKD) 80 (>60 ml/min/1.73 sqM); Alcohol <10 mg/dL; Alkaline Phosphatase 407 U/L (38-126); Anion Gap 9 mmol/L; Blood Urea Nitrogen 15 mg/dL (7-17); Calcium 9.3 mg/dL (8.4-10.2); Carbon Dioxide 28 mmol/L (22-30); Chloride 98 mmol/L (98-107); Glucose 107 mg/dL (74-99); Non-African American GFR(CKD) 69 (>60 ml/min/1.73 sqM); Potassium 4.6 mmol/L (3.5-5.1); Salicylate <1.0 mg/dL; Sodium 135 mmol/L (137-145); Total Bilirubin 0.4 mg/dL (0.2-1.3); Total Protein 7.8 g/dL (6.3-8.2)
[2024-06-28 15:27] LABS: Amphetamine Screen,Urine Not Detected (NotDetected); Barbiturate Screen,Urine Not Detected (NotDetected); Benzodiazepines Screen,Urine Not Detected (NotDetected); Cocaine Screen,Urine Not Detected (NotDetected); Methadone Screen, Urine Not Detected (NotDetected); Opiate Screen,Urine Not Detected (NotDetected); Oxycodone Screen, Urine Not Detected (NotDetected); Phencyclidine Screen,Urine Not Detected (NotDetected); Tricyclic Antidepressant,Urine Not Detected (NotDetected); Urn Cannabinoid Scrn Not Detected (NotDetected)
[2024-06-28 15:30] LABS: INR 0.9 (<1.2)
[2024-06-28 15:31] LABS: Partial Thromboplastin Time 23.4 sec (22.0-30.0); Prothrombin Time 10.4 sec (10.0-12.5)
--- NOTE | 2024-06-28 16:02 | ED ---
General Adult HPI <Viviane Jain - Last Filed: 06/30/24 09:03> - General Source: patient Mode of arrival: wheelchair Limitations: no limitations <Sarah Lewis - Last Filed: 07/22/24 21:48> - General Chief complaint: Recheck/Abnormal Lab/Rx Stated complaint: Failure to Thrive Time Seen by Provider: 06/28/24 14:15 - History of Present Illness Initial comments: 78-year-old female with reported history of renal mass presents to the emergency department with confusion and weight loss. Friend is at bedside and helps read the history. States that the patient has had significant issues with memory loss as of recently. She has also lost a considerable amount of weight. They found that she had a renal mass earlier this year and she was supposed to have an MRI completed. Between the patient's forgetfulness and the physicians not calling back to get the patient set up for her tests, she has not had them completed yet. Friend reports that she went on vacation and the patient did not got out of bed for the entire week. She has not been eating. She states that this behavior is extremely abnormal for the patient. Patient denies any history of cancer. No pain. No other alleviating, precipitating or modifying factors (Sarah Lewis) - Related Data Home Medications Medication Instructions Recorded Confirmed Multivitamins, Thera [Multivitamin 1 tab PO DAILY 05/11/17 06/28/24 (formulary)] Fluticasone/Vilanterol [Breo 1 puff INHALATION RT-DAILY 06/10/23 06/28/24 Ellipta 200-25 Mcg Inhaler] Montelukast [Singulair] 10 mg PO HS 06/10/23 06/28/24 valACYclovir HCL [Valacyclovir] 500 mg PO DAILY 06/10/23 06/28/24 Allergies Allergy/AdvReac Type Severity Reaction Status Date / Time cefprozil [From Cefzil] Allergy Rash/Hives Verified 06/28/24 17:35 ciprofloxacin Allergy Rash/Hives Verified 06/28/24 17:35 aspirin AdvReac STOMACH Verified 06/28/24 17:35 ULCER Review of Systems ROS Other: All systems not noted in ROS Statement are negative. <EnglishViviane - Last Filed: 06/30/24 09:03> ROS Other: All systems not noted in ROS Statement are negative. <Sarah Lewis - Last Filed: 07/22/24 21:48> ROS Statement: Those systems with pertinent positive or pertinent negative responses have been documented in the HPI. Past Medical History Past Medical History: Asthma Additional Past Medical History / Comment(s): fx rt shoulder History of Any Multi-Drug Resistant Organisms: None Reported Past Surgical History: Tonsillectomy Additional Past Surgical History / Comment(s): ORIF RIGHT SHOULDER Past Anesthesia/Blood Transfusion Reactions: Motion Sickness Additional Past Anesthesia/Blood Transfusion Reaction / Comment(s): no hx blood transfusion Past Psychological History: No Psychological Hx Reported Smoking Status: Never smoker Past Alcohol Use History: Occasional Past Drug Use History: None Reported - Past Family History Mother Family Medical History: No Reported History Father Family Medical History: Cancer Additional Family Medical History / Comment(s): skin <Sarah Lewis - Last Filed: 07/22/24 21:48> General Exam Limitations: no limitations General appearance: alert, in no apparent distress Head exam: Present: atraumatic, normocephalic, normal inspection Eye exam: Present: normal appearance, PERRL, EOMI. Absent: scleral icterus, conjunctival injection, periorbital swelling ENT exam: Present: normal exam, mucous membranes moist Neck exam: Present: normal inspection. Absent: tenderness, meningismus, lymphadenopathy Respiratory exam: Present: normal lung sounds bilaterally. Absent: respiratory distress, wheezes, rales, rhonchi, stridor Cardiovascular Exam: Present: regular rate, normal rhythm, normal heart sounds. Absent: systolic murmur, diastolic murmur, rubs, gallop, clicks GI/Abdominal exam: Present: soft, normal bowel sounds. Absent: distended, tenderness, guarding, rebound, rigid Extremities exam: Present: normal inspection, full ROM, normal capillary refill. Absent: tenderness, pedal edema, joint swelling, calf tenderness Back exam: Present: normal inspection Neurological exam: Present: alert, oriented X3, CN II-XII intact Psychiatric exam: Present: normal affect, normal mood Skin exam: Present: warm, dry, intact, normal color. Absent: rash <Sarah Lewis Last Filed: 07/22/24 21:48> Course Vital Signs 06/28/24 06/28/24 06/28/24 13:58 18:12 19:22 Temperature 99.2 F 99.1 F Pulse Rate 80 81 80 Respiratory 16 18 16 Rate Blood Pressure 150/59 173/90 138/79 O2 Sat by Pulse 99 98 98 Oximetry Medical Decision Making - Lab Data Result diagrams: 06/28/24 15:02 06/28/24 15:02 <Viviane - Last Filed: 06/30/24 09:03> - Lab Data Result diagrams: 06/28/24 15:02 06/28/24 15:02 <DebbieSarah Agusto - Last Filed: 07/22/24 21:48> - Medical Decision Making Was patient admitted / discharged? Hospital course, mention meds given and route, prescriptions, significant lab abnormalities, going to OR and other pertinent info. @ -Hospital course discharged Signout received from Dr. Lewis, patient is a 78-year-old female recently diagnosed renal mass with poor follow-up presenting today for generalized weakness and poor appetite. Pending CT imaging at time of signout. Reviewed CT imaging showed fibrotic changes of lungs, though neoplasm not excluded. Ultimately unclear based on radiologist reading whether or not a pulm embolism was present, reach out to radiologist to clarify there was no pulmonary embolism present. CT abdomen pelvis did not show any renal mass. Also did note nonspecific bowel findings, some fluid-filled small bowel loops within the pelvis consider mild ileus, however patient not currently having episodes of emesis, denied abdominal pain. Discussed results with patient and friend at bedside. We discussed admission for further evaluation of concern for malignancy versus discharge home with close outpatient follow-up. The patient preferred to be discharged stating that she needs to go home and care for her dog. She is adamant she would like to be discharged. We discussed the importance of following up within this week for further evaluation of lab abnormalities and imaging concerning for malignancy. Patient states that she will call Dr. Hardwick's office or speak with her nurse practitioner Piper Bergeron after discharge. I discussed with the patient and her friend the importance of this close follow-up and if unable to follow-up in the next week she should return to the emergency department for further evaluation and assessment. The patient is agreeable with this plan of care. In my medical judgment there is currently no evidence of an immediate life-threatening or surgical condition. Discharge is therefore indicated at this time. Discharge treatment instructions, follow up instructions, and appropriate emergency department return precautions were discussed with the patient and/or medical decision maker. Patient and/or medical decision maker expressed understanding of and agreed with the treatment plan, follow up instructions, and emergency department return precaution. All patient's and/or medical decision maker's questions were answered. The patient was advised that a small risk still exists that a serious condition could develop and was therefore instructed to return to the ED for any changes in symptoms, persistent symptoms, inability to obtain proper follow-up or for any further concerns. Patient received verbal and written instructions for this condition. Undiagnosed new problem with uncertain prognosis? @ -Yes Drug Therapy requiring intensive monitoring for toxicity (Heparin, Nitro, Insulin, Cardizem)? @ -No Were any procedures done? @ -No Diagnosis/symptom? @ -Unexpected weight loss, generalized weakness Acute, or Chronic, or Acute on Chronic? @ -Acute Uncomplicated (without systemic symptoms) or Complicated (systemic symptoms)? @ -[Complicated Side effects of treatment? @ -No Exacerbation, Progression, or Severe Exacerbation? @ -No Poses a threat to life or bodily function? How? (Chest pain, USA, HI, pneumonia, PE, COPD, DKA, ARF, appy, cholecystitis, CVA, Diverticulitis, Homicidal, Suicidal, threat to staff... and all critical care pts) @ -director long term care, potentially, I disucssed this with patient that if symptoms and lab/ imaging findings consistent with malignancy, requires close follow up to ensure treated appropriately (Viviane Jain) Was pt. sent in by a medical professional or institution (, PA, SERVICE CONSULTANT, urgent care, hospital, or fpc...) When possible be specific @ -No Did you speak to anyone other than the patient for history (EMS, parent, family, police, friend...)? What history was obtained from this source @ -Spoke with patient's friend for history Did you review nursing and triage notes (agree or disagree)? Why? @ -I reviewed and agree with nursing and triage notes Were old charts reviewed (outside hosp., previous admission, EMS record, old EKG, old radiological studies, urgent care reports/EKG's, fpc records)? Report findings @ -No old charts were reviewed Differential Diagnosis (chest pain, altered mental status, abdominal pain women, abdominal pain men, vaginal bleeding, weakness, fever, dyspnea, syncope, headache, dizziness, GI bleed, back pain, seizure, CVA, palpatations, mental health, musculoskeletal)? @ -Differential Weakness: Hypoglycemia, shock, sepsis, hyponatremia, anemia, infection, HI, ETOH, adverse medicine reaction, overdose, stroke, this is not meant to be an all-inclusive list. EKG interpreted by me (3pts min.). @ -Yes and demonstrates sinus rhythm with a rate of 70. SD interval 124. QRS 73. QTc of 367. No acute ST segment elevations or depressions X-rays interpreted by me (1pt min.). @ -None done CT interpreted by me (1pt min.). @ -Pending at this time U/S interpreted by me (1pt. min.). @ -None done What testing was considered but not performed or refused? (CT, X-rays, U/S, labs)? Why? @ -None What meds were considered but not given or refused? Why? @ -None Did you discuss the management of the patient with other professionals (professionals i.e. , PA, SERVICE CONSULTANT, lab, RT, psych nurse, social media job titles, bullion weigher, teacher, chief wellness officer, mattress spring encaser)? Give summary @ -Spoke with Dr. Jain who will take over care of patient Was smoking cessation discussed for >3mins.? @ -No Was critical care preformed (if so, how long)? @ -No Were there social determinants of health that impacted care today? How? (Homelessness, low income, unemployed, alcoholism, drug addiction, transportation, low edu. Level, literacy, decrease access to med. care, skilled nursing, rehab)? @ -No Was there de-escalation of care discussed even if they declined (Discuss DNR or withdrawal of care, Hospice)? DNR status @ -No What co-morbidities impacted this encounter? (DM, HTN, Smoking, COPD, CAD, Cancer, CVA, ARF, Chemo, Hep., AIDS, mental health diagnosis, sleep apnea, morbid obesity)? @ -None Was patient admitted / discharged? Hospital course, mention meds given and route, prescriptions, significant lab abnormalities, going to OR and other pertinent info. @ -Upon arrival patient seen and evaluated in room 25. Thorough history and physical exam was performed. IV was established. Laboratory studies are conducted. D-dimer is elevated. Alk phos is elevated. Patient has CTs pending at this time. Case [facility] be [facility] - Lab Data Lab Results 06/28/24 06/28/24 06/28/24 Range/Units 15:02 15:02 15:02 WBC 12.1 H (3.8-10.6) k/uL RBC 3.21 L (3.80-5.40) m/uL Hgb 10.1 L (11.4-16.0) gm/dL Hct 30.8 L (34.0-46.0) % MCV 95.7 (80.0-100.0) fL MCH 31.5 (25.0-35.0) pg MCHC 32.9 (31.0-37.0) g/dL RDW 13.9 (11.5-15.5) % Plt Count 551 H (150-450) k/uL MPV 7.0 Neutrophils % 83 % Lymphocytes % 9 % Monocytes % 4 % Eosinophils % 2 % Basophils % 1 % Neutrophils # 10.1 H (1.3-7.7) k/uL Lymphocytes # 1.1 (1.0-4.8) k/uL Monocytes # 0.5 (0-1.0) k/uL Eosinophils # 0.2 (0-0.7) k/uL Basophils # 0.1 (0-0.2) k/uL PT 10.4 (10.0-12.5) sec INR 0.9 (<1.2) APTT 23.4 (22.0-30.0) sec D-Dimer 1.28 H (<0.60) mg/L FEU Sodium (137-145) mmol/L Potassium (3.5-5.1) mmol/L Chloride (98-107) mmol/L Carbon Dioxide (22-30) mmol/L Anion Gap mmol/L BUN (7-17) mg/dL Creatinine (0.52-1.04) mg/dL Est GFR (CKD-EPI)AfAm (>60 ml/min/1.73 sqM) Est GFR (CKD-EPI)NonAf (>60 ml/min/1.73 sqM) Glucose (74-99) mg/dL Calcium (8.4-10.2) mg/dL Total Bilirubin (0.2-1.3) mg/dL AST (14-36) U/L ALT (4-34) U/L Alkaline Phosphatase (38-126) U/L Troponin I (0.000-0.034) ng/mL Total Protein (6.3-8.2) g/dL Albumin (3.5-5.0) g/dL TSH (0.465-4.680) mIU/L Urine Color Colorless Urine Appearance Clear (Clear) Urine pH 6.5 (5.0-8.0) Ur Specific Center 1.010 (1.001-1.035) Urine Protein Negative (Negative) Urine Glucose (UA) Negative (Negative) Urine Ketones Negative (Negative) Urine Blood Negative (Negative) Urine Nitrite Negative (Negative) Urine Bilirubin Negative (Negative) Urine Urobilinogen <2.0 (<2.0) mg/dL Ur Leukocyte Esterase Negative (Negative) Salicylates mg/dL Urine Opiates Screen Not Detected (NotDetected) Ur Oxycodone Screen Not Detected (NotDetected) Urine Methadone Screen Not Detected (NotDetected) Acetaminophen ug/mL Ur Barbiturates Screen Not Detected (NotDetected) U Tricyclic Antidepress Not Detected (NotDetected) Ur Phencyclidine Scrn Not Detected (NotDetected) Ur Amphetamines Screen Not Detected (NotDetected) U Methamphetamines Scrn Not Detected (NotDetected) U Benzodiazepines Scrn Not Detected (NotDetected) Urine Cocaine Screen Not Detected (NotDetected) U Marijuana (THC) Screen Not Detected (NotDetected) Serum Alcohol mg/dL 06/28/24 06/28/24 Range/Units 15:02 15:02 WBC (3.8-10.6) k/uL RBC (3.80-5.40) m/uL Hgb (11.4-16.0) gm/dL Hct (34.0-46.0) % MCV (80.0-100.0) fL MCH (25.0-35.0) pg MCHC (31.0-37.0) g/dL RDW (11.5-15.5) % Plt Count (150-450) k/uL MPV Neutrophils % % Lymphocytes % % Monocytes % % Eosinophils % % Basophils % % Neutrophils # (1.3-7.7) k/uL Lymphocytes # (1.0-4.8) k/uL Monocytes # (0-1.0) k/uL Eosinophils # (0-0.7) k/uL Basophils # (0-0.2) k/uL PT (10.0-12.5) sec INR (<1.2) APTT (22.0-30.0) sec D-Dimer (<0.60) mg/L FEU Sodium 135 L (137-145) mmol/L Potassium 4.6 (3.5-5.1) mmol/L Chloride 98 (98-107) mmol/L Carbon Dioxide 28 (22-30) mmol/L Anion Gap 9 mmol/L BUN 15 (7-17) mg/dL Creatinine 0.83 (0.52-1.04) mg/dL Est GFR (CKD-EPI)AfAm 80 (>60 ml/min/1.73 sqM) Est GFR (CKD-EPI)NonAf 69 (>60 ml/min/1.73 sqM) Glucose 107 H (74-99) mg/dL Calcium 9.3 (8.4-10.2) mg/dL Total Bilirubin 0.4 (0.2-1.3) mg/dL AST 63 H (14-36) U/L ALT 47 H (4-34) U/L Alkaline Phosphatase 407 H (38-126) U/L Troponin I <0.012 (0.000-0.034) ng/mL Total Protein 7.8 (6.3-8.2) g/dL Albumin 4.0 (3.5-5.0) g/dL TSH 2.130 (0.465-4.680) mIU/L Urine Color Urine Appearance (Clear) Urine pH (5.0-8.0) Ur Specific Center (1.001-1.035) Urine Protein (Negative) Urine Glucose (UA) (Negative) Urine Ketones (Negative) Urine Blood (Negative) Urine Nitrite (Negative) Urine Bilirubin (Negative) Urine Urobilinogen (<2.0) mg/dL Ur Leukocyte Esterase (Negative) Salicylates <1.0 mg/dL Urine Opiates Screen (NotDetected) Ur Oxycodone Screen (NotDetected) Urine Methadone Screen (NotDetected) Acetaminophen <10.0 ug/mL Ur Barbiturates Screen (NotDetected) U Tricyclic Antidepress (NotDetected) Ur Phencyclidine Scrn (NotDetected) Ur Amphetamines Screen (NotDetected) U Methamphetamines Scrn (NotDetected) U Benzodiazepines Scrn (NotDetected) Urine Cocaine Screen (NotDetected) U Marijuana (THC) Screen (NotDetected) Serum Alcohol <10 mg/dL Disposition Is patient prescribed a controlled substance at d/c from ED?: No <Viviane Jain - Last Filed: 06/30/24 09:03> <Sarah Lewis - Last Filed: 07/22/24 21:48> Clinical Impression: Weight loss, non-intentional, Abnormal CT scan, chest Disposition: HOME SELF-CARE Condition: Stable Referrals: Shahbaz Hardwick DO [Primary Care Provider] - 1-2 days
[2024-06-28] MEDS: SODIUM CHLORIDE 0.9% 500 ML 500 ML IV ONE (16:20)
--- NOTE | 2024-06-28 16:30 | XR ---
EXAMINATION TYPE: XR chest 2V DATE OF EXAM: 06/28/2024 COMPARISON: NONE HISTORY: Shortness of breath TECHNIQUE: Frontal and lateral views of the chest are obtained. FINDINGS: Scattered senescent parenchymal changes noted. Hyperinflation compatible with COPD. Fibrotic and cyst ic changes noted greater within the left lung. Underlying infiltrate is difficult to exclude. Heart size is stable. Mediastinal structures are stable and grossly unremarkable. No evidence for hilar prominence. Degenerative changes dorsal spine. IMPRESSION: 1. Fibrotic and cystic changes noted greater within the left lung. Underlying infiltrate is difficult to exclude.
--- NOTE | 2024-06-28 17:06 | CT ---
EXAMINATION TYPE: CT brain wo con DATE OF EXAM: 06/28/2024 COMPARISON: 05/07/2021 INDICATION: AMS DLP: 1716.8 mGycm, Automated exposure control for dose reduction was used. CONTRAST: None CT of the brain is performed utilizing 3 mm thick sections through the posterior fossa and 3 mm thick sections through the remaining calvarium. Study is performed within 24 hours of arrival to the hosp ital. No abnormal hyperdensity is present to suggest an acute intracranial hemorrhage. No mass lesion is evident. No acute infarcts are evident. Ventricles and sulci are mildly prominent for the patient age. Paranasal sinuses and mastoid air cells within the [id number] are clear. Right septal deviation is present. IMPRESSION: 1. Atrophy. No acute intracranial process. Follow up MRI can be performed as clinically indicated.
--- NOTE | 2024-06-28 17:14 | CT ---
CTA CHEST EXAMINATION TYPE: CT chest angio for PE DATE OF EXAM: 06/28/2024 INDICATION: abdominal pain CT DLP: 1716.8 mGycm, Automated exposure control for dose reduction was used. CONTRAST: Patient injected with 95 cc mL of Isovue 370. COMPARISON: 09/08/2023 TECHNIQUE: CT of the chest is performed on a spiral scan at 2 mm thick sections. Study is performed with intravenous contrast timed for evaluation for pulmonary embolism. This will limit additional po rtions of the evaluation. 3-D MIP images reconstructed by the technologist are reviewed on the compu ter in the coronal and sagittal planes. FINDINGS: No persistent filling defects are evident to suggest an acute pulmonary embolism. No mediastinal or hilar adenopathy enlarged by CT criteria is evident. The ascending aorta diameter at the level of the main pulmonary artery is cm. The main pulmonary art nestor diameter at the bifurcation is 2.2 cm. Bilateral apical pleural thickening with emphysematous findings were present previously type changes are present. Scattered densities are present through the peripheral right lung and at the left lung b ase. Findings are stable from comparison. Pulmonary fibrosis most likely. Underlying neoplasm however is not excluded. Follow-up is recommended. Limited CT sections were through the upper abdomen. Upper abdomen appears unremarkable. IMPRESSION: 1. Persistent filling defect to suggest acute pulmonary embolism. 2. Chronic stable appearing consolidation and emphysematous changes. Pulmonary fibrosis is likely pre sent. Follow-up is recommended
--- NOTE | 2024-06-28 17:23 | CT ---
EXAMINATION TYPE: CT abdomen pelvis w con DATE OF EXAM: 06/28/2024 COMPARISON: Ultrasound 04/27/2024 INDICATION: Renal mass weight loss, congestion abdominal pain DLP: 1716.8 mGycm, Automated exposure control for dose reduction was used. CONTRAST: 95 mL of Isovue 370. Study performed without Oral Contrast TECHNIQUE: Axial images were obtained from above the diaphragm to the pubic rami in the axial plane a t 5 mm thick sections. Reconstructed images are reviewed on the computer in the coronal plane. FINDINGS: Limited CT sections are obtained the lung bases. Please see CTA chest report same date. Follow-up est CTs are recommended. CT ABDOMEN: Liver: Normal Spleen: Normal Pancreas: Normal Adrenal glands: The adrenal glands are normal. Gallbladder: Not identified. Correlate with surgical history Kidneys: No masses are evident. No suspicious abnormalities are correlated with the ultrasound findin g. No hydronephrosis is present. Small cortical renal cyst is present on the posterior left mid ki dney. Delayed images were obtained through the kidneys, which remain unremarkable. Aorta: Vascular calcification is within the aorta. Inferior vena cava: Normal. CT PELVIS: Loops of bowel within the abdomen and pelvis are normal. This study is bilateral contrast limitin g bowel evaluation. Some fecal debris is descending colon. Some fluid-filled small bowel loops are wi thin the lower pelvis Appendix: Not identified. No dilated tubular structure or inflammatory change evident. Urinary bladder: Normal. Genitourinary structures: Uterus appears atrophic. Suspicious adnexal mass is not identified. Fluid-f illed small bowel loops are in the adnexal regions. Osseous structures: No suspicious lytic or sclerotic lesions. IMPRESSION: 1. Nonspecific bowel findings. Some fluid-filled small bowel loops within the pelvis. Consider mild ileus. 2. No suspicious renal mass to correlate with ultrasound findings. Consider follow-up with ultrasound .
[2024-06-28 19:32] VITALS: BP 138/79; PULSE 80; RESP 16; TEMP 99.1
== END 2024-06-28 19:19 | disposition home or self-care (01) ==
LOC: EC 13:49
DX: R62.7 Adult failure to thrive
CPT/HCPCS: 36415; 70450; 71046; 71275; 74177; 80053; 80143; 80179; 80306; 80320; 81003; 84443; 84484; 85025; 85379; 85610; 85730; 93005; 99285

== ENCOUNTER → 2024-07-12 | Outpatient (CLI) | payer MEDICARE ==
[2024-07-12 16:14] LABS: African American GFR (CKD) 87 (>60 ml/min/1.73 sqM); Blood Urea Nitrogen 23 mg/dL (7-17); Non-African American GFR(CKD) 75 (>60 ml/min/1.73 sqM)
--- NOTE | 2024-07-17 10:41 | CT ---
EXAMINATION TYPE: CT chest w con DATE OF EXAM: 07/12/2024 COMPARISON: 09/08/2023 HISTORY: Pulmonary aspergillosis CT DLP: 223 mGycm Automated exposure control for dose reduction was used. TECHNIQUE: CT scan of the chest is performed with IV Contrast, patient injected with 100 mL of Isovue 300. MIP Images are created on CT scanner and reviewed. 3D reconstructed images are created on an independent workstation and reviewed. FINDINGS: The chronic changes within the lungs are stable. There is stable cystic bronchiectasis and peribronch ial cuffing in the left lower lobe. There are stable scattered areas of tree-in-bud density throughou t the right lung. There is stable pleural-parenchymal scarring in the lung apices. The great vessels chest are normal and is no mediastinal, hilar or axillary adenopathy. There is no p ulmonary emboli. Limited scanning through the upper abdomen reveals no significant abnormality. The osseous structures are intact. IMPRESSION: Stable changes within the lungs as described above. No new abnormality. [facility], Workstation: [place] 07/17/2024 10:38 AM
== END | disposition home or self-care (01) ==
LOC: RADCTMAIN 15:24
PROVIDERS: ATTEND Internal Medicine Critical Care Medicine
DX: B44.1 Other pulmonary aspergillosis
CPT/HCPCS: 36415; 71260; 82565; 84520

== ENCOUNTER → 2024-07-13 | Outpatient (CLI) | payer MEDICARE ==
--- NOTE | 2024-07-19 14:20 | MR ---
EXAMINATION TYPE: MR brain wo con DATE OF EXAM: 07/13/2024 COMPARISON: None HISTORY: Memory Loss CONTRAST: Performed utilizing 4.5ml mL intravenous Gadavist gadolinium contrast. TECHNIQUE: Multiplanar, multiecho imaging on a 3.0 Danitza magnet is performed through the brain. Stud y is performed within 24 hours of arrival to the hospital. The craniovertebral junction is normal. The pituitary is normal. Diffusion-weighted imaging is performed. No abnormal hyperintensity is present to suggest an acute i ntracranial infarct or acute ischemic change. Mild uptake may be within the brainstem. Mild uptake is in the periventricular white matter adjacent to the occipital horns lateral ventricles. Ventricles and sulci are mildly prominent for the patient age. IMPRESSION: 1. Mild age-related atrophy. 2. Minimal white matter changes in the brainstem and within the occipital horn lateral ventricle. Dario tricular white matter. [facility], , 07/19/2024 2:18 PM
== END | disposition home or self-care (01) ==
LOC: RADMRIMAIN 12:19
PROVIDERS: ATTEND Internal Medicine
DX: G31.09 Other frontotemporal neurocognitive disorder
CPT/HCPCS: 70551

== ENCOUNTER → 2024-07-20 | Outpatient (CLI) | payer MEDICARE ==
--- NOTE | 2024-07-26 18:49 | MM ---
Reason for Exam: Screening (asymptomatic). Last mammogram was performed 1 year(s) and 6 month(s) ago. Patient History: Menarche at age 15. Postmenopausal. Risk Values: Nika 5 year model risk: 1.3%. NCI Lifetime model risk: 2.6%. Prior Study Comparison: 10/27/2018 Bilateral Screening Mammogram, Kevin [facility]lis. 12/10/2021 Bilateral Screening Mammogram, Kevin Guru. 02/12/2023 Bilateral Screening Mammogram, Kevin Baylis. Tissue Density: The breasts are heterogeneously dense, which may obscure small masses. Findings: Analyzed By CAD. There are vascular calcifications on both sides. Uptake grouped calcifications lateral subareolar left breast remain unchanged. There is subareolar nodularity on both views which appears more defined and incompletely disperses on 3-D images. Further evaluation is recommended. Otherwise, no significant change. Overall Assessment: Incomplete: need additional imaging evaluation, BI-RAD 0 Management: Special View Mammogram of both breasts. Diagnostic Breast Ultrasound of both breasts. Additional views to include spot 3-D CC, 3-D CC rolled, and 3-D ML views. Bilateral subareolar and periareolar ultrasound. [facility] will attempt to contact patient to return for supplemental views and ultrasound if indicated. [facility], , 07/26/2024 6:46 PM. Electronically signed and approved by: Nick Mendiola M.D. Radiologist
== END | disposition home or self-care (01) ==
LOC: RADMAMWWP 14:32
PROVIDERS: ATTEND Internal Medicine
DX: Z12.31 Encounter for screening mammogram for malignant neoplasm of breast
CPT/HCPCS: 77063; 77067

== ENCOUNTER 2024-08-03 11:54 | Day surgery (SDC) | payer MEDICARE ==
[2024-07-30 09:43] VITALS: BMI 16.2
[~2024-08-03 11:54] MED LIST changes: -LIDOCAINE 1% (10MG/ML) FOR IV START INTRADERMA PRN
[2024-08-03] MEDS: IV FLUID CONTINUATION 1,000 ML IV ONE (12:45)
[2024-08-03] MEDS: LACTATED RINGERS 1,000 ML IV SCH (12:46)
[2024-08-03] MEDS ORDERED: MIDAZOLAM 2 MG/2 ML VIAL ONE (12:53)
[2024-08-03] MEDS ORDERED: KETAMINE HCL IN 0.9 % NACL 50 MG/5 ML SYRINGE ONE (12:53)
[2024-08-03] MEDS ORDERED: PROPOFOL 10 MG/ML 20 ML VIAL IV ONE (12:53)
[2024-08-03] MEDS ORDERED: GLYCOPYRROLATE 0.2 MG/ML 2 ML VIAL ONE (12:53)
[2024-08-03] MEDS ORDERED: LIDOCAINE 1% INJ 10MG/ML (20 ML MDV) ONE (12:53)
--- NOTE | 2024-08-03 13:13 | P.PCN ---
Date of Procedure: 08/03/24 Preoperative Diagnosis: Left lower lobe bronchiectasis, consolidation Postoperative Diagnosis: Left lower lobe bronchiectasis Procedure(s) Performed: Bronchoscopy, airway inspection, bronchioloalveolar lavage of the left lower lobe Anesthesia: MAC Surgeon: Justen Bowen Estimated Blood Loss (ml): 0 Pathology: other Condition: stable Disposition: same day Operative Findings: The flexible bronchoscopy was done in the endoscopy suite. Consent was obtained. Timeout was done. Anesthetic agents were administered by anesthesia at the bedside. Patient was placed on a full facemask 10 L/min. Following adequate sedation, the flexor bronchoscope was introduced to the right nostril and was advanced in the posterior pharynx and later on to the larynx. Examination of the upper airways were essentially within normal limits. Vocal cord function and mobility was within normal limits with normal abduction and adduction. The vallecula, arytenoids and the vocal cords and epiglottis were carefully inspected and no significant abnormalities identified Following that, bronchoscope was advanced into the upper trachea and examination of tracheobronchial tree was done. The trachea was within normal limits. Bilateral mainstem bronchi were within normal limits. The upper lobes on the left and the right were within normal limits. The examination of the left side included the left lower lobe bronchus and the various segments of the left lower lobe specially in the posterior segments were filled with nguyen, loose, cloudy respiratory secretions. Therapeutic airway suctioning was done. Following that, bronchial lavage of the left lower lobe was done with a total of 60 cc of saline was infused and around 25 cc of cloudy material was aspirated. Aspirate was nonbloody. Examination of the right side including the right middle lobe bronchus and the right lower lobe bronchus and the various segments and subsegments. All of those structures were within normal limits. Therapeutic airway suctioning was done. Bronchoscope was removed and the patient was transferred to recovery in stable condition.
[2024-08-03 13:21] VITALS: RESP 14
[2024-08-03 13:41] VITALS: BP 153/92; PULSE 106
[2024-08-04 06:23] LABS: Appearance,BF Cloudy (Clear); RBC, Body Fluid 1625 /UL (0-2000)
[2024-08-04 10:08] LABS: Nucleated Cells, Body Fluid 2675 /UL
== END 2024-08-03 14:08 | disposition home or self-care (01) ==
LOC: ORWHC2ENDO 11:54
PROVIDERS: ATTEND Internal Medicine Critical Care Medicine
CPT/HCPCS: 31624; 87070; 87102; 87116; 87205; 87206; 87496; 87498; 87502; 87529; 87634; 87635; 87798; 88108; 88305; 89050

== ENCOUNTER → 2024-08-04 | Outpatient (CLI) | payer MEDICARE ==
--- NOTE | 2024-08-04 14:14 | MM ---
Reason for Exam: Additional evaluation requested from abnormal screening. Last screening mammogram was performed less than 1 month ago. Patient History: Menarche at age 15. Patient has no children. Postmenopausal. Risk Values: Nika 5 year model risk: 2.0%. NCI Lifetime model risk: 4.0%. Prior Study Comparison: 10/27/2018 Bilateral Screening Mammogram, Kevin [place]. 12/10/2021 Bilateral Screening Mammogram, Kevin [place]ford. 02/12/2023 Bilateral Screening Mammogram, Kevin Guru. 07/20/2024 Bilateral MG 3D screening mammo w/cad, [facility]. Tissue Density: The breasts are heterogeneously dense, which may obscure small masses. Findings: Analyzed By CAD. Masslike areas in the retroareolar region anteriorly bilateral breasts. Overall Assessment: Incomplete: need additional imaging evaluation, BI-RAD 0 Management: Diagnostic Breast Ultrasound of both breasts. Results were given to the patient verbally at the time of exam. Patient should continue monthly self-breast exams. A clinical breast exam by your physician is recommended on an annual basis. This exam should not preclude additional follow-up of suspicious palpable abnormalities. Note on Nika scores and lifetime risk: 1. A Nika score greater than 3% is considered moderate risk. If this is the case, consider specialist referral to assess eligibility for a risk reducing agent. 2. If overall lifetime risk for the development of breast cancer is 20% or higher, the patient may qualify for future screening with alternating mammogram and breast MRI. [facility], , 08/04/2024 2:11 PM. Electronically signed and approved by: Daniel Pickens DO
--- NOTE | 2024-08-04 15:05 | USB ---
Reason for Exam: Additional evaluation requested from abnormal screening. Patient History: Menarche at age 15. Patient has no children. Postmenopausal. Risk Values: Nika 5 year model risk: 2.0%. NCI Lifetime model risk: 4.0%. Prior Study Comparison: 12/10/2021 Bilateral Screening Mammogram, Kevin Chávezt. 02/12/2023 Bilateral Screening Mammogram, Kevin HallGuru. 07/20/2024 Bilateral MG 3D screening mammo w/cad, [facility]. Findings: The whole breast of both breasts, the axilla of both breasts and the retroareolar of both breasts were scanned. A complete US of all four quadrants of the breast and retro-areolar region were reviewed. No solid or cystic masses are identified.. Overall Assessment: Probably benign, BI-RAD 3 Management: Diagnostic Mammogram of both breasts. A clinical breast exam by your physician is recommended on an annual basis and results should be correlated with mammographic findings. This exam should not preclude additional follow-up of suspicious palpable abnormalities. Results were given to the patient verbally at the time of exam. [facility], , 08/04/2024 3:02 PM. Electronically signed and approved by: Huber Corcoran M.D. Radiologis
== END | disposition home or self-care (01) ==
LOC: RADMAMWWP 13:11
PROVIDERS: ATTEND Internal Medicine
CPT/HCPCS: 77062; 77066

== ENCOUNTER → 2024-09-15 | Outpatient (CLI) | payer MEDICARE ==
--- NOTE | 2024-09-15 19:34 | MR ---
EXAMINATION TYPE: MR kidney wo/w con DATE OF EXAM: 09/15/2024 3:47 PM COMPARISON: CT scan abdomen from 06/28/2024 924. CLINICAL INDICATION: Female, 79 years old with history of J84.10 PULMONARY F 41.3 G31.09 G93.89 N28.8 9 R63.4; PHH, left renal mass TECHNIQUE: Multiplanar multi-sequence imaging was performed without contrast. Post contrast imaging was performed. Post IV contrast subtraction images were also submitted for review. IV Contrast: 4.5 mL Gadavist FINDINGS: LOWER CHEST: No gross irregularity. ABDOMEN Liver: No evidence for hepatic steatosis or cirrhosis. Gallbladder and Bile ducts: No evidence for ductal dilation, or biliary stricture or evidence of chol edocholithiasis. The gallbladder is within normal limits. Pancreas: No ductal dilation. No evidence for solid mass. Spleen: Normal for size. Adrenal glands: Unremarkable. Kidneys: No evidence for obstructive uropathy. No suspicious renal masses. Simple appearing nonenhanc ing bilateral renal cysts. Stomach and Bowel: No evidence for bowel wall thickening or evidence for obstruction. Retroperitoneum/Peritoneum: No evidence of pneumoperitoneum or free fluid. Vasculature: No aortic aneurysm. Musculoskeletal: The osseous structures appear intact. Lymph Nodes: No gross evidence for lymphadenopathy. Abdominal wall: Unremarkable. IMPRESSION: No suspicious renal masses, finding on prior ultrasound favored represent prominent column of [place]. Simple appearing bilateral renal cysts. [facility], , 09/15/2024 7:32 PM
== END | disposition home or self-care (01) ==
LOC: RADMRIMAIN 14:25
PROVIDERS: ATTEND Internal Medicine
DX: N28.1 Cyst of kidney, acquired (principal); J84.10 Pulmonary fibrosis, unspecified; R41.3 Other amnesia; G31.09 Other frontotemporal neurocognitive disorder; G93.89 Other specified disorders of brain; N28.89 Other specified disorders of kidney and ureter; R63.4 Abnormal weight loss
CPT/HCPCS: 74183; A9585

== ENCOUNTER → 2024-09-29 | Outpatient (CLI) | payer MEDICARE ==
[2024-09-29 19:08] LABS: Hepatitis A Antibody IgM Nonreactive (Nonreactive); Hepatitis B Core IgM Nonreactive (Nonreactive); Hepatitis B Surface Antigen Nonreactive (Nonreactive); Hepatitis C IgG Antibody Nonreactive (Nonreactive)
[2024-09-30 09:44] LABS: Protein, Total 8.1 g/dL (6.2-8.2)
== END | disposition home or self-care (01) ==
LOC: LABWHC1 14:05
PROVIDERS: ATTEND Internal Medicine
DX: R63.4 Abnormal weight loss (principal); Z68.1 Body mass index [BMI] 19.9 or less, adult
CPT/HCPCS: 36415; 80074; 84165; 84443; 86038; 86039